=== PATIENT | male | born 2000 | race Caucasian/White ===

== ENCOUNTER 2024-09-19 18:09 | Emergency (ER) | payer SELFPAY ==
[~2024-09-19] VITALS: Ht 167.6 cm; Wt 105.0 kg
[2024-09-19 18:21] VITALS: O2SAT 99
[2024-09-19 18:33] VITALS: BP 163/87; PULSE 82; RESP 18; TEMP 37.3; O2SAT 99
[2024-09-19] MEDS: LIDOCAINE HCL/PF 1% 10 MG/ML 5ML VIAL INFIL ONE (21:32)
[2024-09-19] MEDS: BACITRACIN ZINC OINT UDPKT TOP ONE (21:33)
[2024-09-19] MEDS ORDERED: CEPH500C2 MT (21:59)
[2024-09-19] MEDS ORDERED: SULF1TAB48 MT (21:59)
[2024-09-19] MEDS: ACETAMINOPHEN 325MG TABLET PO ONE (22:00)
== END 2024-09-19 23:23 | disposition home or self-care (01) ==
LOC: ER 18:09
DX: L02.11 Cutaneous abscess of neck (principal)
CPT/HCPCS: 10060; 99283; J2003; Z7610 ×3

== ENCOUNTER 2025-03-05 00:08 | Emergency (ER) | payer SELFPAY ==
[~2025-03-05] VITALS: Ht 167.6 cm; Wt 114.0 kg
[~2025-03-05 00:08] MED LIST: CEPH500C2 MT; SULF1TAB48 MT
[2025-03-05 00:27] VITALS: O2SAT 99
[2025-03-05] MEDS ORDERED: DIPHENHYDRAMINE 50MG CAPSULE PO ONE (00:45)
[2025-03-05] MEDS: DIPHENHYDRAMINE 25MG CAPSULE PO NR (00:46)
[2025-03-05] MEDS: METHYLPREDNISOLONE SOD SUCC 125MG/2ML (ACT-O-VIAL) IM ONE (00:47)
[2025-03-05] MEDS ORDERED: PRED10TA MT (02:26)
[2025-03-05] MEDS ORDERED: DIPH25CA83 MT (02:26)
[2025-03-05 02:43] VITALS: BP 157/83; PULSE 97; RESP 18; TEMP 37.4; O2SAT 98
== END 2025-03-05 02:57 | disposition home or self-care (01) ==
LOC: ER 00:08
DX: T78.40XA Allergy, unspecified, initial encounter (principal); R21 Rash and other nonspecific skin eruption; Z79.52 Long term (current) use of systemic steroids; Y92.89 Other specified places as the place of occurrence of the external cause
CPT/HCPCS: 96372; 99283; Q0163; J2919; Z7610

== ENCOUNTER 2025-03-05 08:57 | Emergency (ER) | payer MEDICAID ==
[~2025-03-05] VITALS: Ht 167.6 cm; Wt 114.0 kg
[~2025-03-05 08:57] MED LIST changes: +DIPH25CA83 MT; +PRED10TA MT
[2025-03-05 09:05] VITALS: TEMP 36.8; O2SAT 98
[2025-03-05 09:18] VITALS: BP 144/89; PULSE 118; RESP 18; O2SAT 96
[2025-03-05] MEDS: DIPHENHYDRAMINE 50MG/ML VIAL IM ONE (09:51)
[2025-03-05] MEDS: DEXAMETHASONE 4MG TABLET PO ONE (09:56)
== END 2025-03-05 10:45 | disposition home or self-care (01) ==
LOC: ER 08:57
DX: L50.9 Urticaria, unspecified (principal); Z79.899 Other long term (current) drug therapy
CPT/HCPCS: 96372; 99283; J8540; J1200; Z7610